=== PATIENT | female | born 1995 | race Caucasian/White ===

== ENCOUNTER 2022-10-27 12:49 | Emergency (ER) | payer BC, MEDICAID ==
[2022-10-27] MEDS ORDERED: Ondansetron 4 MG/2 ML SDV IVPUSH ONE (13:37)
[2022-10-27] MEDS ORDERED: Sodium Chloride 0.9% 1,000 ML IV ONE (13:37)
[2022-10-27] MEDS ORDERED: Morphine 2 MG/ML SYRINGE IVPUSH ONE ×2 (13:37→15:43)
[2022-10-27] MEDS ORDERED: Sodium Chloride 0.9% 500 ML IV ONE (13:44)
[2022-10-27] MEDS ORDERED: Sodium Chloride 0.9% 1,000 ML IV SCH (13:45)
[2022-10-27 14:02] LABS: BASOPHILS ABSOLUTE AUTO 0.02 K/mm3 (0.01-0.08); BASOPHILS PERCENT AUTO 0.2 % (0.1-1.2); EOSINOPHILS ABSOLUTE AUTO 0.06 K/mm3 (0.04-0.36); EOSINOPHILS PERCENT AUTO 0.5 (0.7-5.8); HEMATOCRIT 37.9 % (34.1-44.9); HEMOGLOBIN 12.1 gm/dl (11.2-15.7); IMMATURE GRAN ABSOLUTE AUTO 0.04 K/mm3 (0.00-0.10); IMMATURE GRAN PERCENT AUTO 0.3 % (<=1.0); LYMPHOCYTES ABSOLUTE AUTO 1.38 K/mm3 (1.18-3.74); LYMPHOCYTES PERCENT AUTO 11.2 % (19.3-51.7); MEAN CORPUSCULAR HEMOGLOBIN 29.2 pg (25.6-32.2); MEAN CORPUSCULAR HGB CONC 31.9 g/dl (32.2-35.5); MEAN CORPUSCULAR VOLUME 91.3 fl (79.4-94.8); MEAN PLATELET VOLUME 8.7 fl (9.4-12.3); MONOCYTES ABSOLUTE AUTO 1.86 K/mm3 (0.24-0.36); MONOCYTES PERCENT AUTO 15.1 % (4.7-12.5); NEUTROPHILS ABSOLUTE AUTO 8.98 K/mm3 (1.56-6.13); NEUTROPHILS PERCENT AUTO 72.7 % (34.0-71.1); PLATELET COUNT,PLT 302 K/mm3 (182-369); RED BLOOD CELL COUNT 4.15 M/mm3 (3.98-5.22); WHITE BLOOD CELL COUNT,WBC 12.34 K/mm3 (3.98-10.04)
[2022-10-27 14:22] LABS: ALANINE AMINOTRANSFERASE,ALT 40 U/L (14-59); ALBUMIN 3.6 g/dl (3.4-5.0); ALKALINE PHOSPHATASE 63 U/L (46-116); ANION GAP 13.4 (5-15); ASPARTATE AMNIOTRANSFERASE,AST 32 U/L (15-37); BILIRUBIN TOTAL 0.4 mg/dL (0.2-1.0); BLOOD UREA NITROGEN,BUN 7 mg/dL (7-18); BUN/CREATININE RATIO 8.8 (14-18); CALCIUM 8.4 mg/dL (8.5-10.1); CARBON DIOXIDE,CO2 26 mEq/L (21-32); CHLORIDE,CL 103 mEq/L (98-107); CREATININE 0.8 mg/dL (0.55-1.02); ESTIMATED GFR 103 mL/min (>60); GLUCOSE RANDOM 83 mg/dL (70-99); POTASSIUM,K 3.4 mEq/L (3.5-5.1); PROTEIN TOTAL,TP 7.1 g/dl (6.4-8.2); SODIUM,NA 139 mEq/L (136-145)
[2022-10-27 14:29] LABS: LACTIC ACID 0.8 mmol/L (0.4-2.0)
[2022-10-27 14:34] LABS: SLIDE REVIEW NORMAL SMEAR
[2022-10-27] MEDS ORDERED: Piperacillin/Tazobactam 4.5 GM in Sodium Chloride 0.9% 100 ML IV ONE (15:21)
[2022-10-27] MEDS ORDERED: Morphine 2 MG/ML SYRINGE ONE (15:37)
[2022-10-27 16:04] LABS: APPEARANCE,URINE SLT CLOUDY (Clear); BILIRUBIN,URINE NEGATIVE (Negative); COLOR,URINE YELLOW (Yellow); GLUCOSE,URINE NEGATIVE (Negative); KETONES,URINE NEGATIVE (Negative); LEUKOCYTE ESTERASE,URINE TRACE (Negative); NITRITE,URINE NEGATIVE (Negative); OCCULT BLOOD,URINE NEGATIVE (Negative); PROTEIN,URINE 1+ (Negative)
[2022-10-27 16:28] LABS: BACTERIA,URINE MODERATE /hpf (FEW); MUCUS,URINE MODERATE /hpf (FEW); RBC,URINE 0-5 /hpf (0-5); WBC,URINE 20-30 /hpf (0-5)
[2022-10-27] MEDS ORDERED: Iopamidol 612 MG/ML 100 ML Bottle IVPUSH ONE ×2 (16:28→16:43)
[2022-10-27] MEDS ORDERED: Sodium Chloride 0.9% 10 ML Syringe FLUSH PRN ×2 (16:28→16:43)
[2022-10-27 16:29] LABS: WBC CLUMPS,URINE FEW /hpf (NOT SEEN)
[2022-10-27] MEDS ORDERED: Levofloxacin 750 MG Tab PO ONE (20:10)
[2022-10-27] MEDS ORDERED: Ondansetron 4 MG Tab.DIS PO ONE (20:29)
[2022-10-27] MEDS ORDERED: Ondansetron 4 MG Tab.DIS ONE (20:31)
== END 2022-10-27 21:00 | disposition home or self-care (01) ==
LOC: JD.ED 12:49
DX: N12 Tubulo-interstitial nephritis, not specified as acute or chronic (principal); Z88.2 Allergy status to sulfonamides
CPT/HCPCS: 36415; 74177; 80053; 81001; 83605; 84703; 85025; 87040; 87086; 96361; 96365; 96375; 96376; 99284; A9270; J2270; J2405; J2543; J3490; J7030; Q9967

== ENCOUNTER 2023-07-27 05:26 | Inpatient (IN) | payer MEDICAID, OTHER ==
[2023-07-27] MEDS ORDERED: Oxytocin/Lactated Ringers 30 UNIT/500 ML BAG IV SCH ×2 (05:45→10:00)
[2023-07-27] MEDS ORDERED: Lactated Ringers 1,000 ML IV SCH (05:45)
[2023-07-27] MEDS ORDERED: Sodium Chloride 0.9% 10 ML Syringe FLUSH PRN (06:00)
[2023-07-27] MEDS: Lactated Ringers 1,000 ML IV SCH (06:02)
[2023-07-27 06:08] LABS: BASOPHILS ABSOLUTE AUTO 0.1 K/mm3 (0.0-0.2); BASOPHILS PERCENT AUTO 0.5 % (0.0-1.0); EOSINOPHILS ABSOLUTE AUTO 0.3 K/mm3 (0.0-0.4); EOSINOPHILS PERCENT AUTO 2.3 % (0.0-6.0); HEMATOCRIT 31.7 % (37.0-47.0); IMMATURE GRAN ABSOLUTE AUTO 0.26 K/mm3 (0.00-0.05); LYMPHOCYTES PERCENT AUTO 15.2 % (24.0-44.0); MEAN CORPUSCULAR HEMOGLOBIN 26.7 pg (28.0-32.0); MEAN CORPUSCULAR HGB CONC 31.5 g/dl (32.0-36.0); MEAN CORPUSCULAR VOLUME 84.8 fl (83.0-99.0); MEAN PLATELET VOLUME 9.9 fl (9.4-12.3); MONOCYTES ABSOLUTE AUTO 0.9 K/mm3 (0.0-0.8); MONOCYTES PERCENT AUTO 7.1 % (0.0-8.0); NEUTROPHILS ABSOLUTE AUTO 9.6 K/mm3 (1.8-7.7); NEUTROPHILS PERCENT AUTO 72.9 % (41.0-71.0); PLATELET COUNT,PLT 329 K/mm3 (150-400); RED BLOOD CELL COUNT 3.74 M/mm3 (4.10-5.30); WHITE BLOOD CELL COUNT,WBC 13.16 K/mm3 (3.9-11.3)
[2023-07-27] MEDS: Citric Acid/Sodium Citrate Solution 30 ML Cup PO ONE ×2 (06:25→07:09)
[2023-07-27] MEDS: Metoclopramide 10 MG/2 ML SDV IVPUSH ONE ×2 (06:25→07:09)
[2023-07-27] MEDS ORDERED: Lactated Ringers 2,000 ML ONE (07:02)
[2023-07-27] MEDS ORDERED: Oxytocin 10 Units/1 ML SDV ONE (07:02)
[2023-07-27] MEDS ORDERED: Ondansetron 4 MG/2 ML SDV ONE (07:02)
[2023-07-27] MEDS ORDERED: Ketorolac 30 MG/ML SDV ONE (07:02)
[2023-07-27] MEDS ORDERED: Morphine PF 10 MG/10 ML SDV ONE (07:02)
[2023-07-27] MEDS: ceFAZolin 2 GM in Sodium Chloride 0.9% 50 ML IV ONE (07:19)
[2023-07-27] MEDS ORDERED: Ondansetron 4 MG/2 ML SDV IVPUSH PRN (07:22)
[2023-07-27] MEDS ORDERED: diphenhydrAMINE 50 MG/ML SDV IVPUSH PRN ×2 (07:22→10:00)
[2023-07-27] MEDS ORDERED: fentaNYL 100 MCG/2 ML SDV IVPUSH PRN (07:22)
[2023-07-27] MEDS ORDERED: Meperidine 50 MG/ML Vial IVPUSH PRN (07:22)
[2023-07-27] MEDS ORDERED: ePHEDrine 50 MG/ML SDV ONE (07:58)
[2023-07-27] MEDS ORDERED: ePHEDrine 50 MG/ML SDV IVPUSH PRN (10:00)
[2023-07-27] MEDS ORDERED: Naloxone 0.4 MG/ML SDV IVPUSH PRN (10:00)
[2023-07-27] MEDS: Acetaminophen/oxyCODONE 325-5 MG Tab PO PRN (10:31)
[2023-07-27] MEDS: Dextrose 5%-Lactated Ringers 1,000 ML IV SCH (10:51)
[2023-07-27] MEDS: Simethicone 80 MG Tab.Chew PO SCH (13:42)
[2023-07-27] MEDS: Ketorolac 30 MG/ML SDV IVPUSH SCH (14:31)
[2023-07-27] MEDS: Ferrous Sulfate 324 MG Tab.EC PO SCH (16:50)
[2023-07-27] MEDS: Docusate Sodium 100 MG Cap PO SCH (20:14)
[2023-07-27] MEDS ORDERED: Magnesium Hydroxide 400 MG/5 ML Susp 30 ML Cup PO PRN (21:00)
[2023-07-27] MEDS: Tranexamic Acid 1,000 MG/10 ML Vial ONE (22:29)
[2023-07-28 05:35] LABS: BASOPHILS ABSOLUTE AUTO 0.1 K/mm3 (0.0-0.2); BASOPHILS PERCENT AUTO 0.5 % (0.0-1.0); EOSINOPHILS ABSOLUTE AUTO 0.2 K/mm3 (0.0-0.4); EOSINOPHILS PERCENT AUTO 1.7 % (0.0-6.0); HEMATOCRIT 29.2 % (37.0-47.0); HEMOGLOBIN 9.3 gm/dl (12.0-16.0); IMMATURE GRAN ABSOLUTE AUTO 0.15 K/mm3 (0.00-0.05); IMMATURE GRAN PERCENT AUTO 1.1 % (0.0-0.4); LYMPHOCYTES ABSOLUTE AUTO 1.7 K/mm3 (1.0-4.8); MEAN CORPUSCULAR HGB CONC 31.8 g/dl (32.0-36.0); MEAN CORPUSCULAR VOLUME 84.6 fl (83.0-99.0); MEAN PLATELET VOLUME 9.8 fl (9.4-12.3); MONOCYTES ABSOLUTE AUTO 0.9 K/mm3 (0.0-0.8); MONOCYTES PERCENT AUTO 6.9 % (0.0-8.0); NEUTROPHILS ABSOLUTE AUTO 10.1 K/mm3 (1.8-7.7); NEUTROPHILS PERCENT AUTO 76.8 % (41.0-71.0); PLATELET COUNT,PLT 295 K/mm3 (150-400); RED BLOOD CELL COUNT 3.45 M/mm3 (4.10-5.30); WHITE BLOOD CELL COUNT,WBC 13.12 K/mm3 (3.9-11.3)
[2023-07-28] MEDS: Prenatal Multivitamin with Calcium/Folic Acid/Iron Tab PO SCH (08:46)
[2023-07-28] MEDS: Ibuprofen 600 MG Tab PO PRN (08:46)
[2023-07-28] MEDS: Acetaminophen/oxyCODONE 325-5 MG Tab PO PRN (10:17)
== END 2023-07-29 09:30 | disposition home or self-care (01) | DRG 788 ==
LOC: JD.OB 05:26
PROVIDERS: ADMIT Obstetrics & Gynecology; ATTEND Obstetrics & Gynecology
PROC: 10D00Z1 Extraction of Products of Conception, Low, Open Approach (ICD-10-PCS; principal; 2023-07-27 08:00)
DX: O34.211 Maternal care for low transverse scar from previous cesarean delivery (principal); O99.824 Streptococcus B carrier state complicating childbirth; O99.02 Anemia complicating childbirth; Z37.0 Single live birth; Z3A.39 39 weeks gestation of pregnancy; Z88.2 Allergy status to sulfonamides; Z88.8 Allergy status to other drugs, medicaments and biological substances; Z79.2 Long term (current) use of antibiotics; Z90.89 Acquired absence of other organs
CPT/HCPCS: 36415; 59025; 85025; 86592; 86850; 86900; 86901; 94762; A9270-GY; J0690; J1885; J2274; J2405; J2590; J2765; J3490; J7120; J7121

== ENCOUNTER 2024-08-03 16:07 | Emergency (ER) | payer MEDICAID, OTHER ==
[2024-08-03 18:15] LABS: APPEARANCE,URINE CLEAR (Clear); BILIRUBIN,URINE NEGATIVE (Negative); COLOR,URINE YELLOW (Yellow); GLUCOSE,URINE NEGATIVE (Negative); KETONES,URINE NEGATIVE (Negative); LEUKOCYTE ESTERASE,URINE NEGATIVE (Negative); NITRITE,URINE NEGATIVE (Negative); OCCULT BLOOD,URINE 2+ (Negative); PROTEIN,URINE NEGATIVE (Negative); UROBILINOGEN,URINE 0.2 (0.2-1.0)
[2024-08-03 18:25] LABS: BACTERIA,URINE FEW /hpf (FEW); SQUAMOUS EPITHELIAL CELLS,UR 0-5 /hpf (0-5); WBC,URINE 0-5 /hpf (0-5)
[2024-08-03 18:26] LABS: MUCUS,URINE FEW /hpf (FEW)
[2024-08-03 18:28] LABS: BASOPHILS ABSOLUTE AUTO 0.1 K/mm3 (0.0-0.2); BASOPHILS PERCENT AUTO 0.6 % (0.0-1.0); EOSINOPHILS ABSOLUTE AUTO 3.6 K/mm3 (0.0-0.4); HEMATOCRIT 38.5 % (37.0-47.0); HEMOGLOBIN 12.7 gm/dl (12.0-16.0); IMMATURE GRAN ABSOLUTE AUTO 0.03 K/mm3 (0.00-0.05); IMMATURE GRAN PERCENT AUTO 0.2 % (0.0-0.4); LYMPHOCYTES ABSOLUTE AUTO 2.4 K/mm3 (1.0-4.8); LYMPHOCYTES PERCENT AUTO 19.5 % (24.0-44.0); MEAN CORPUSCULAR HEMOGLOBIN 28.1 pg (28.0-32.0); MEAN CORPUSCULAR VOLUME 85.2 fl (83.0-99.0); MEAN PLATELET VOLUME 8.9 fl (9.4-12.3); MONOCYTES ABSOLUTE AUTO 0.6 K/mm3 (0.0-0.8); MONOCYTES PERCENT AUTO 4.6 % (0.0-8.0); NEUTROPHILS ABSOLUTE AUTO 5.8 K/mm3 (1.8-7.7); NEUTROPHILS PERCENT AUTO 46.1 % (41.0-71.0); PLATELET COUNT,PLT 274 K/mm3 (150-400); RED BLOOD CELL COUNT 4.52 M/mm3 (4.10-5.30); WHITE BLOOD CELL COUNT,WBC 12.54 K/mm3 (3.9-11.3)
[2024-08-03 18:56] LABS: A/G RATIO 1.3 (1-2); ALBUMIN 3.7 g/dl (3.4-5.0); ANION GAP 11.6 (5-15); BILIRUBIN TOTAL 0.4 mg/dL (0.2-1.0); BUN/CREATININE RATIO 13.8 (14-18); C-REACTIVE PROTEIN 0.07 mg/dL (<0.30); CALCIUM 9.2 mg/dL (8.5-10.1); CREATININE 0.8 mg/dL (0.55-1.02); EST CRCL DRUG DOSING (CG) 88.79 mL/min; POTASSIUM,K 3.6 mEq/L (3.5-5.1); PROTEIN TOTAL,TP 6.6 g/dl (6.4-8.2)
[2024-08-03] MEDS: Alum Hydrox/Mag Hydrox/Simeth 30 ML, Lidocaine 2% 15 ML PO ONE (19:30)
[2024-08-03] MEDS: Sucralfate Suspension 1 GM/10 ML Cup PO ONE (20:19)
== END 2024-08-03 20:22 | disposition home or self-care (01) ==
LOC: JD.ED 16:07
DX: K21.9 Gastro-esophageal reflux disease without esophagitis (principal); Z88.2 Allergy status to sulfonamides
CPT/HCPCS: 36415; 76705; 80053; 81001; 83690; 84703; 85025; 86140; 99284; A9270; 99283